=== PATIENT | male | born 1970 | race Two or more races ===

== ENCOUNTER 2018-01-20 00:50 | Emergency (ER) | payer OTHER ==
[~2018-01-20] VITALS: Ht 180.3 cm; Wt 84.0 kg
[2018-01-20 00:52] VITALS: BP 138/80
== END 2018-01-20 01:26 | disposition left against medical advice (07) ==
LOC: ER 00:50
DX: Z53.21 Procedure and treatment not carried out due to patient leaving prior to being seen by health care provider (principal)

== ENCOUNTER 2018-01-20 04:23 | Emergency (ER) | payer OTHER ==
[~2018-01-20] VITALS: Ht 180.3 cm; Wt 84.0 kg
[2018-01-20] MEDS ORDERED: IPRATROPIUM/ALBUTEROL 0.5-3(2.5)MG/3ML NEB HHN ONE ×2 (06:45→08:45)
[2018-01-20] MEDS ORDERED: PREDNISONE 20MG TABLET PO STA (08:31)
[2018-01-20] MEDS ORDERED: ACETAMINOPHEN 325MG TABLET PO ONE (08:45)
[2018-01-20] MEDS ORDERED: ONDANSETRON HCL 4MG/2ML VIAL IV STA (09:36)
[2018-01-20] MEDS ORDERED: SODIUM CHLORIDE 0.9% 1,000 ML IV ONE (09:36)
[2018-01-20 10:06] LABS: BASOPHILS % 0.5 % (0.0-2.0); HEMATOCRIT. 41.2 % (42.0-52.0); HEMOGLOBIN. 14.2 g/dL (14.0-18.0); LYMPHOCYTES % 34.3 % (20.0-50.0); MEAN CORPUSCULAR HEMOGLOBIN 30.5 pg (28.0-32.0); MEAN CORPUSCULAR VOLUME 88.4 fL (80.0-94.0); MEAN PLATELET VOLUME 9.6 fl (7.4-10.4); MONOCYTES % 11.5 % (2.0-8.0); NEUTROPHILS % 45.7 % (40.0-76.0); PLATELET 150 x1000/uL (130-400); RED BLOOD CELL COUNT 4.67 mill/uL (4.7-6.1); RED CELL DISTRIBUTION WIDTH 15.3 % (11.6-14.6)
[2018-01-20 10:17] LABS: CHLORIDE 108 mEq/L (98-107)
[2018-01-20 19:36] VITALS: BP 128/77
== END 2018-01-20 21:20 | disposition home or self-care (01) ==
LOC: ER 04:23
DX: J06.9 Acute upper respiratory infection, unspecified (principal); M79.671 Pain in right foot; F31.9 Bipolar disorder, unspecified; F90.9 Attention-deficit hyperactivity disorder, unspecified type; F43.10 Post-traumatic stress disorder, unspecified; G47.419 Narcolepsy without cataplexy; Z87.891 Personal history of nicotine dependence; Z59.0 Homelessness
CPT/HCPCS: 36415; 71045; 73630; 80053; 85025; 87804; 94640; 96361; 96374; 99285; J2405; J7030; J7512; J7620; Z7610

== ENCOUNTER 2018-01-21 01:37 | Emergency (ER) | payer OTHER ==
[~2018-01-21] VITALS: Ht 180.3 cm; Wt 84.0 kg
[2018-01-21] MEDS ORDERED: SODIUM CHLORIDE 0.9% 1,000 ML IV ONE (08:35)
[2018-01-21 13:10] VITALS: BP 123/75
== END 2018-01-21 14:24 | disposition home or self-care (01) ==
LOC: ER 01:37
DX: R05 Cough (principal); F17.200 Nicotine dependence, unspecified, uncomplicated; F43.10 Post-traumatic stress disorder, unspecified; F90.9 Attention-deficit hyperactivity disorder, unspecified type
CPT/HCPCS: 93005; 99284; J7030; Z7610